=== PATIENT | female | born 1975 | race Caucasian/White ===

== ENCOUNTER → 2023-05-30 08:54 | Outpatient (REF) | payer OTHER, SELFPAY | LOC: DHCBC HW 08:54 | PROVIDERS: ATTENDING PHYSICIAN Internal Medicine Cardiovascular Disease; FAMILY PHYSICIAN Family Medicine | DX: R00.2 Palpitations (principal) | CPT/HCPCS: 93306 ==

== ENCOUNTER → 2023-07-31 09:46 | Outpatient (REF) | payer OTHER, SELFPAY | LOC: HWRAD 09:46 | PROVIDERS: ATTENDING PHYSICIAN Physician Assistant; FAMILY PHYSICIAN Family Medicine | DX: M25.561 Pain in right knee (principal) | CPT/HCPCS: 73564 ==

== ENCOUNTER → 2023-10-22 06:32 | Outpatient (REF) | payer OTHER, SELFPAY | LOC: MRI 06:32 | PROVIDERS: ATTENDING PHYSICIAN Orthopaedic Surgery Sports Medicine; FAMILY PHYSICIAN Family Medicine | DX: M22.41 Chondromalacia patellae, right knee (principal) | CPT/HCPCS: 73721 ==

== ENCOUNTER → 2024-01-02 07:01 | Outpatient (REF) | payer OTHER, SELFPAY ==
[2024-01-02] VITALS (8 sets, daily range): BP systolic 73–153; BP diastolic 69–98
[2024-01-02 07:26] LABS: Hematocrit 39.4 % (37.0-47.0); Hemoglobin 13.4 g/dL (12.0-16.0); Mean Corpuscular Hgb 31.2 pg (27.0-31.0); Mean Corpuscular Volume 91.8 fL (81.0-99.0); Mean Platelet Volume 9.8 fL (7.4-10.4); Platelet Count 181 10^3/uL (130-400); Red Blood Cell Count 4.29 10^6/uL (4.20-5.40); Red Cell Dist. Width 12.8 % (11.5-14.5); White Blood Cell Count 6.3 10^3/uL (4.8-10.8)
[2024-01-02 07:56] LABS: INR 0.99; PT 12.9 Sec (11.4-14.6)
== END ==
LOC: RADI 07:01
PROVIDERS: ATTENDING PHYSICIAN Orthopaedic Surgery; FAMILY PHYSICIAN Family Medicine; REFERRING PHYSICIAN Orthopaedic Surgery
DX: M67.861 Other specified disorders of synovium, right knee (principal); M25.461 Effusion, right knee; M25.561 Pain in right knee
CPT/HCPCS: 88305; 20206; 36415; 76942; 85027; 85610; 99152

== ENCOUNTER 2024-01-29 06:50 | Day surgery (SDC) | payer OTHER, SELFPAY ==
[2024-01-29] VITALS (12 sets, daily range): BP systolic 137–166; BP diastolic 76–97; BMI 30.6
[2024-01-29] MEDS: CELEBREX 200 MG PO (07:52)
[2024-01-29] MEDS: TYLENOL 1000 MG PO (07:52)
[2024-01-29] MEDS: NORMOSOL-R/PLASMALYTE-A 1000 IV (07:53)
[2024-01-29] MEDS: BENADRYL 25 MG IV (11:09)
[2024-01-29] MEDS: NSS (PRESERVATIVE FREE) 8 ML IV (12:27)
[2024-01-29] MEDS: PEPCID 20 MG IV (12:27)
== END 2024-01-29 12:58 | disposition home or self-care (01) ==
LOC: SDS 06:50
PROVIDERS: ATTENDING PHYSICIAN Orthopaedic Surgery
DX: M17.11 Unilateral primary osteoarthritis, right knee (principal); M65.90 Unspecified synovitis and tenosynovitis, unspecified site; S83.282A Other tear of lateral meniscus, current injury, left knee, initial encounter; X58.XXXA Exposure to other specified factors, initial encounter
CPT/HCPCS: 29876; 29881

== ENCOUNTER → 2024-04-20 07:17 | Outpatient (REF) | payer OTHER, SELFPAY | LOC: WDC 07:17 | PROVIDERS: ATTENDING PHYSICIAN Obstetrics & Gynecology; FAMILY PHYSICIAN Family Medicine | DX: Z12.31 Encounter for screening mammogram for malignant neoplasm of breast (principal) | CPT/HCPCS: 77063; 77067 ==

== ENCOUNTER → 2024-05-17 07:35 | Outpatient (REF) | payer OTHER, SELFPAY | LOC: WDC 07:35 | PROVIDERS: ATTENDING PHYSICIAN Obstetrics & Gynecology; FAMILY PHYSICIAN Family Medicine | DX: R92.2 Inconclusive mammogram (principal) | CPT/HCPCS: 76641 ==

== ENCOUNTER → 2024-05-31 08:15 | Outpatient (REF) | payer OTHER, SELFPAY ==
--- NOTE | 2024-05-31 16:07 | OID.BR.INTR ---
SIMON[facility] Breast Navigator - Initial
- -
Date of Contact: 05/31/24
Met with patient. Patient given written information on navigator services available at [facility]. Will follow up as needed per protocol.
== END ==
LOC: WDC 08:15
PROVIDERS: ATTENDING PHYSICIAN Obstetrics & Gynecology; FAMILY PHYSICIAN Family Medicine
DX: N63.14 Unspecified lump in the right breast, lower inner quadrant (principal)
CPT/HCPCS: 88305; 19083; A4648